=== PATIENT | male | born 1990 | race Two or more races ===

== ENCOUNTER 2017-02-23 05:46 | Emergency (ER) | payer SELFPAY | END 2017-02-23 05:57 | disposition left against medical advice (07) | LOC: ER 05:46 | DX: R20.0 Anesthesia of skin (principal); M79.603 Pain in arm, unspecified; Z53.21 Procedure and treatment not carried out due to patient leaving prior to being seen by health care provider ==

== ENCOUNTER 2017-03-15 21:17 | Emergency (ER) | payer SELFPAY ==
[~2017-03-15] VITALS: Ht 180.3 cm; Wt 117.9 kg
[2017-03-15 21:17] VITALS: BP 175/95
--- NOTE | 2017-03-15 21:52 | PHYS DOC ---
Past Medical History Past Medical History: Migraines Adult General Chief Complaint Chief Complaint: HEADACHE HPI HPI Patient is a 26 year old [male] who presents with [5 day history of intermittent headaches that are gradual in onset not sudden not worst of life but fairly persistent and that concerned him. No blurry vision fever or stiff neck confusion nausea vomiting. Patient reports significant and heavy caffeine intake including multiple energy drinks daily. Patient denies any other health problems. Currently the patient is declining any medications for his headache because he: "Can't afford it". Pain scale 1 of 10. He is requesting a CT scan of his head.] Review of Systems Review of Systems Constitutional: Denies fever or chills [] Eyes: Denies change in visual acuity, redness, or eye pain [] HENT: Denies nasal congestion or sore throat [] Respiratory: Denies cough or shortness of breath [] Cardiovascular: No additional information not addressed in HPI [] GI: Denies abdominal pain, nausea, vomiting, bloody stools or diarrhea [] : Denies dysuria or hematuria [] Musculoskeletal: Denies back pain or joint pain [] Integument: Denies rash or skin lesions [] Neurologic: Denies headache, focal weakness or sensory changes [] Endocrine: Denies polyuria or polydipsia [ All review systems are negative except as mentioned in the history present illness.] Allergies Allergies Allergies Coded Allergies Type Severity Reaction Last Updated Verified No Known Drug Allergies 03/15/17 No Physical Exam Physical Exam Constitutional: Well developed, well nourished, no acute distress, non-toxic appearance. [] HENT: Normocephalic, atraumatic, bilateral external ears normal, oropharynx moist, no oral exudates, nose normal. [] Eyes: PERRLA, EOMI, conjunctiva normal, no discharge. [] Neck: Normal range of motion, no tenderness, supple, no stridor. [] Cardiovascular:Heart rate regular rhythm, no murmur [] Lungs & Thorax: Bilateral breath sounds clear to auscultation [] Abdomen: Bowel sounds normal, soft, no tenderness, no masses, no pulsatile masses. [] Skin: Warm, dry, no erythema, no rash. [] Back: No tenderness, no CVA tenderness. [] Extremities: No tenderness, no cyanosis, no clubbing, ROM intact, no edema. [] Neurologic: Alert and oriented X 3, normal motor function, normal sensory function, no focal deficits noted. [] Psychologic: Affect normal, judgement normal, mood normal. [] Current Patient Data Vital Signs Vital Signs Date Time Temp Pulse Resp B/P (MAP) Pulse Ox O2 Delivery O2 Flow Rate FiO2 03/15/17 21:17 103 16 175/95 (121) 99 Room Air EKG EKG [] Radiology/Procedures Radiology/Procedures CT head []negative per rad report Course & Med Decision Making Course & Med Decision Making Pertinent Labs and Imaging studies reviewed. (See chart for details) [] Dragon Disclaimer Dragon Disclaimer This electronic medical record was generated, in whole or in part, using a voice recognition dictation system. Departure Departure Impression: Primary Impression: Headache Disposition: 01 HOME, SELF-CARE Condition: STABLE Referrals: NO PCP (PCP) Patient Instructions: General Headache Without Cause, [id number] Additional Instructions: Please wean yourself off the heavy caffeine intake. KELBY SANCHEZ MD Mar 15, 2017 21:52
--- NOTE | 2017-03-15 22:11 | RAD ---
CT head without intravenous contrast History: Severe headache for 5 days. Comparison: None. Technique: Axial images are obtained of the head from the skull base through the vertex without IV contrast. Exposure: One or more of the following individualized dose reduction techniques were utilized for this examination: 1. Automated exposure control 2. Adjustment of the mA and/or kV according to patient size 3. Use of iterative reconstruction technique Findings: The ventricles are appropriate in size, shape, and location for the patient's age. No obvious intracranial mass, mass-effect, midline shift, hemorrhage or obvious acute infarction is identified. Basilar cisterns are patent. Bone windows demonstrate no acute calvarial abnormality. The visualized paranasal sinuses appear clear. Impression: 1. No acute intracranial process. Electronically signed by: Evans Dumont MD (03/15/2017 10:07 PM) [facility]
== END 2017-03-15 22:28 | disposition home or self-care (01) ==
LOC: ER 21:17
DX: G43.909 Migraine, unspecified, not intractable, without status migrainosus (principal)
CPT/HCPCS: 70450; 99284-25